=== PATIENT | female | born 1975 | race Caucasian/White ===

== ENCOUNTER 2020-05-26 15:09 | Emergency (ER) | payer MEDICAID ==
[~2020-05-26] VITALS: Ht 165.1 cm; Wt 82.0 kg
[2020-05-26] MEDS ORDERED: TRAMADOL 50MG TABLET PO ONE (16:15)
[2020-05-26 18:03] VITALS: BP 126/80
== END 2020-05-26 18:04 | disposition home or self-care (01) ==
LOC: ER 15:09
DX: R51.9 Headache, unspecified (principal); M79.18 Myalgia, other site; F14.10 Cocaine abuse, uncomplicated; F12.10 Cannabis abuse, uncomplicated
CPT/HCPCS: 99283